=== PATIENT | female | born 1985 | race Caucasian/White ===

== ENCOUNTER 2016-06-23 19:19 | Emergency (ER) | payer MEDICAID, OTHER ==
[~2016-06-23] VITALS: Ht 167.6 cm; Wt 112.0 kg
[~2016-06-23 19:19] MED LIST: DILT120C9 PO; DIVA250ER PO; METO50TA PO; PROZ20CA11 PO
[2016-06-23 19:24] VITALS: BP 116/73; PULSE 104; RESP 18; TEMP 98; O2SAT 99
[2016-06-23 19:30] VITALS: O2SAT 98
[2016-06-23] MEDS ORDERED: LITH300C2 PO (19:32)
[2016-06-23] MEDS ORDERED: DILT120T PO (19:32)
[2016-06-23] MEDS ORDERED: METO50TA11 PO (19:32)
--- NOTE | 2016-06-23 19:34 | PD ---
HPI Chief Complaint: Cardiac Complaint Time Seen by Provider: 19:27 Travel History International Travel<30 days: No Contact w/Intl Traveler<30days: No Traveled to known affect area: No History of Present Illness HPI 30-year-old female complains of tachycardia. Patient has history of SVT status post ablation twice in the past. Patient's on calcium channel gonzalo for SVT. Patient started having tachycardia around 3:00 this afternoon. Patient denies any chest pain or shortness of breath. Patient denies abdominal pain. Patient denies any focal weakness or numbness of extremity. PFSH Past Medical History Blood Disorders: No Bipolar Disorder: Yes Depression: Yes Heart Rhythm Problems: Yes (PSVT/AVNRT) Cancer: No Cardiovascular Problems: Yes (TACHY ARRYHTHMIAS) Chemotherapy: No Diabetes: No Diminished Hearing: No Endocrine: No Gastrointestinal Disorders: No Genitourinary: No Immune Disorder: No Implanted Vascular Access Dvce: No Musculoskeletal: No Neurologic: Yes Psychiatric: Yes (PTSD) Reproductive: No Respiratory: Yes Immunizations Current: Yes Radiation Therapy: No Thyroid Disease: No : 2 Para: 2 Ectopic : No Ovarian Cysts: No Dilation and Curettage (D&C): No Tubal Ligation: No Past Surgical History AICD: No Arteriovenous Shunt: No Cardiac Surgery: Yes Gynecologic Surgery: Yes (ENDOMETRIAL/CERVICAL BX) Insulin Pump: No Joint Replacement: No Pacemaker: No Other Surgery: Yes (THYROGLOSSAL CYST REMOVAL A CHILD, CARDIAC ABLATION AND 2009) Social History Alcohol Use: Yes (SOCIALLY) Tobacco Use: No Substance Use: No Allergies-Medications (Allergen,Severity, Reaction): Coded Allergies: Keflex (Verified Allergy, Severe, Hives, 03/16/14) Sulfa (Verified Allergy, Severe, Hives, 03/16/14) Reported Meds & Prescriptions Reported Meds & Active Scripts Active Reported Goldonna Carbonate 300 Mg Cap 300 Mg PO BID Metoprolol Succinate ER 24 HR (Metoprolol Succinate) 50 Mg Tab 50 Mg PO DAILY Diltiazem (Diltiazem HCl) 120 Mg Tab 120 Mg PO DAILY Review of Systems General / Constitutional: No: Fever Eyes: No: Visual changes HENT: No: Headaches Cardiovascular: Positive: Tachycardia, No: Chest Pain or Discomfort Respiratory: No: Shortness of Breath Gastrointestinal: No: Abdominal Pain Genitourinary: No: Dysuria Musculoskeletal: No: Pain Skin: No Rash Neurologic: No: Weakness Psychiatric: No: Depression Endocrine: No: Polydipsia Hematologic/Lymphatic: No: Easy Bruising Physical Exam Narrative GENERAL: Well-nourished, well-developed patient. SKIN: Warm and dry. HEAD: Normocephalic. EYES: No scleral icterus. No injection or drainage. NECK: Supple, trachea midline. No JVD or lymphadenopathy. CARDIOVASCULAR: Regular rate and rhythm without murmurs, gallops, or rubs. RESPIRATORY: Breath sounds equal bilaterally. No accessory muscle use. GASTROINTESTINAL: Abdomen soft, non-tender, nondistended. MUSCULOSKELETAL: No cyanosis, or edema. BACK: Nontender without obvious deformity. No CVA tenderness. Neurologic exam normal. Data Data Last Documented VS Vital Signs Date Time Temp Pulse Resp B/P Pulse Ox O2 Delivery O2 Flow Rate FiO2 06/23/16 19:30 98 Room Air 06/23/16 19:27 110 18 06/23/16 19:24 98.0 116/73 Orders Electrocardiogram (06/23/16 19:27) Complete Blood Count With Diff (06/23/16 19:27) Basic Metabolic Panel (Bmp) (06/23/16 19:27) Creatine Kinase (Cpk) (06/23/16 19:27) Troponin I (06/23/16 19:27) Prothrombin Time / Inr (Pt) (06/23/16 19:27) Act Partial Throm Time (Ptt) (06/23/16 19:27) Magnesium (Mg) (06/23/16 19:27) Thyroid Stimulating Hormone (06/23/16 19:27) Phosphorus (Po4) (06/23/16 19:27) Chest, Single Ap (06/23/16 19:27) Iv Access Insert/Monitor (06/23/16 19:27) Ecg Monitoring (06/23/16 19:27) Oximetry (06/23/16 19:27) CKMB (06/23/16 19:42) CKMB% (06/23/16 19:42) Labs Laboratory Tests Test 06/23/16 19:42 White Blood Count 17.2 TH/MM3 Red Blood Count 4.59 MIL/MM3 Hemoglobin 13.0 GM/DL Hematocrit 38.8 % Mean Corpuscular Volume 84.7 FL Mean Corpuscular Hemoglobin 28.4 PG Mean Corpuscular Hemoglobin 33.5 % Concent Red Cell Distribution Width 14.0 % Platelet Count 343 TH/MM3 Mean Platelet Volume 8.3 FL Neutrophils (%) (Auto) 72.6 % Lymphocytes (%) (Auto) 17.3 % Monocytes (%) (Auto) 6.5 % Eosinophils (%) (Auto) 2.2 % Basophils (%) (Auto) 1.4 % Neutrophils # (Auto) 12.5 TH/MM3 Lymphocytes # (Auto) 3.0 TH/MM3 Monocytes # (Auto) 1.1 TH/MM3 Eosinophils # (Auto) 0.4 TH/MM3 Basophils # (Auto) 0.2 TH/MM3 CBC Comment DIFF FINAL Differential Comment Prothrombin Time 10.8 SEC Prothromb Time International 1.0 RATIO Ratio Activated Partial 29.5 SEC Thromboplast Time Sodium Level 144 MEQ/L Potassium Level 3.5 MEQ/L Chloride Level 110 MEQ/L Carbon Dioxide Level 26.6 MEQ/L Anion Gap 7 MEQ/L Blood Urea Nitrogen 9 MG/DL Creatinine 0.84 MG/DL Estimat Glomerular Filtration 81 ML/MIN Rate Random Glucose 138 MG/DL Calcium Level 7.7 MG/DL Phosphorus Level 2.8 MG/DL Magnesium Level 1.9 MG/DL Total Creatine Kinase 233 U/L Creatine Kinase MB 2.5 NG/ML Creatine Kinase MB % 1.1 % Troponin I 0.12 NG/ML Thyroid Stimulating Hormone 0.461 uIU/ML [address] [place] [address] Medical Decision Making Medical Screen Exam Complete: Yes Emergency Medical Condition: Yes Interpretation(s) 2045 PM. EKG shows sinus tachycardia at rate 109. Nonspecific ST-T wave change. Last Impressions Chest X-Ray 06/23/[id number] Signed Impressions: Service Date/Time: Thursday, June 23, 2016 19:39 - CONCLUSION: No acute disease. Richard Krueger MD 2045 PM. CBC WBC 17.2. 72 neutrophil. CMP within normal limit. Glucose 138. Total CK 233 with normal MB fraction. Troponin 0.12. Differential Diagnosis Differential diagnosis including SVT, sinus tachycardia, atrial flutter. Narrative Course 30-year-old female with tachycardia. History of SVT status post ablation twice in the past. Patient is on calcium channel gonzalo. Patient was given adenosine 6 mg and then 12 mg IV with success. Diagnosis Primary Impression: SVT (supraventricular tachycardia) Patient Instructions: General Instructions Additional Instructions: Advised patient to follow up with personal physician. Return as needed. Med/Other Pt SpecificInfo: No Change to Meds Disposition: 01 DISCHARGE HOME Condition: Stable Caleb Martines MD Jun 23, 2016 19:34
--- NOTE | 2016-06-23 19:47 | RADRPT ---
EXAM DATE/TIME: 06/23/2016 19:39 [facility] COMPARISON: CHEST SINGLE AP, March 16, 2014, 2:15. INDICATIONS : Chest pain and tightness. MEDICAL HISTORY : Tachy Arryhthmias. SURGICAL HISTORY : Ablation. ENCOUNTER: Initial ACUITY: 1 day PAIN SCORE: 5/10 LOCATION: Bilateral chest FINDINGS: A single view of the chest demonstrates the lungs to be symmetrically aerated without evidence of mas s, infiltrate or effusion. The cardiomediastinal contours are unremarkable. Osseous structures are intact. CONCLUSION: No acute disease. Richard Krueger MD on June 23, 2016 at 19:45 Board Certified Radiologist. This report was verified electronically.
[2016-06-23 19:55] LABS: AUTOMATED NEUTROPHIL # 12.5 TH/MM3 (1.8-7.7); BASOPHIL # 0.2 TH/MM3 (0-0.2); BASOPHIL % 1.4 % (0.0-2.0); EOSINOPHIL # 0.4 TH/MM3 (0-0.4); EOSINOPHIL % 2.2 % (0.0-4.0); HEMATOCRIT 38.8 % (35.0-46.0); HEMO FLAGS DIFF FINAL; LYMPH % 17.3 % (9.0-44.0); MEAN CELL VOLUME 84.7 FL (80.0-100.0); MEAN CORPUSCULAR HEMOGLOBIN 28.4 PG (27.0-34.0); MEAN CORPUSCULAR HGB CONC 33.5 % (32.0-36.0); MONO % 6.5 % (0.0-8.0); NEUT % 72.6 % (16.0-70.0); PLATELET COUNT 343 TH/MM3 (150-450); RED BLOOD COUNT 4.59 MIL/MM3 (4.00-5.30); WHITE BLOOD COUNT 17.2 TH/MM3 (4.0-11.0)
[2016-06-23 20:13] LABS: APTT (PATIENT) 29.5 SEC (24.3-30.1); BICARBONATE 26.6 MEQ/L (21.0-32.0); MAGNESIUM 1.9 MG/DL (1.5-2.5); POTASSIUM 3.5 MEQ/L (3.5-5.1); PROTHROMBIN TIME - PATIENT 10.8 SEC (9.8-11.6)
[2016-06-23 20:36] LABS: CKMB 2.5 NG/ML (0.5-3.6)
[2016-06-23 21:13] VITALS: BP 116/73
--- NOTE | 2016-06-23 22:28 | EKG ---
Date Performed: 06/23/2016 Time Performed: 19:28:29 PTAGE: 30 years EKG: SINUS TACHYCARDIA WITH SHORT DE INTERVAL ABNORMAL RHYTHM ECG PREVIOUS TRACING : 03/16/2014 01.48 No significant change from previous tracing noted. DOCTOR: Chad Falcon Interpretating Date/Time 06/23/2016 22:27:18
== END 2016-06-23 21:24 | disposition home or self-care (01) ==
LOC: NEPE 19:19
DX: I47.1 Supraventricular tachycardia (principal); F43.10 Post-traumatic stress disorder, unspecified; F31.9 Bipolar disorder, unspecified; F32.9 Major depressive disorder, single episode, unspecified
CPT/HCPCS: 71010; 80048; 82550; 82552; 83735; 84100; 84443; 84484; 85025; 85610; 85730; 93005